=== PATIENT | female | born 1990 | race Caucasian/White ===

== ENCOUNTER 2019-07-08 23:28 | Emergency (ER) | payer MEDICAID ==
[~2019-07-08] VITALS: Ht 160 cm; Wt 97.0 kg
[~2019-07-08 23:28] MED LIST: CEPH500T PO; CLOT15CR73 TP; ONDA4TAB6 PO; ONDA8TAB9 PO
[2019-07-09 01:29] VITALS: BP 136/92
--- NOTE | 2019-07-09 01:29 | NUR ---
PATIENT IS VISUALIZED IN NAD IN THE LOBBY TALKING TO HER DAUGHTER
[2019-07-09 03:17] LABS: BASOPHILS % (AUTO) 0.4 % (0-1); D-DIMER 0.67 MG/L FEU (0-0.50); EOSINOPHILS # (AUTO) 0.4 X10'3 (0-0.9); HEMATOCRIT 39.6 % (35.0-45.0); HEMOGLOBIN 12.9 g/dl (12.0-16.0); MEAN CORPUSCULAR HEMOGLOBIN 29.4 PG (27.0-31.0); MEAN CORPUSCULAR HGB CONC 32.6 g/dL (33.0-36.5); MEAN CORPUSCULAR VOLUME 90.4 FL (78-98); MONOCYTES # (AUTO) 0.9 X10'3 (0-0.9); MONOCYTES % (AUTO) 7.4 % (2-12); NEUTROPHILS # (AUTO) 7.6 X10'3 (1.8-7.7); NEUTROPHILS % (AUTO) 64.2 % (42-75); PLATELET COUNT 301 X10'3 (140-440); RED BLOOD COUNT 4.39 X10'6 (4.20-5.60); RED CELL DISTRIBUTION WIDTH 13.8 % (11.5-14.5); WHITE BLOOD COUNT 11.8 X10'3 (4.5-11.0)
[2019-07-09 03:18] LABS: URINE HCG NEGATIVE (NEG)
[2019-07-09 03:20] LABS: ALANINE AMINOTRANSFERASE 26 U/L (12-78); ALBUMIN 3.8 G/DL (3.4-5.0); ALBUMIN/GLOBULIN RATIO 0.9 (1.1-1.5); ALKALINE PHOSPHATASE 110 IU/L (46-116); ANION GAP 8 (8-16); ASPARTATE AMINO TRANSFERASE 19 U/L (10-37); BILIRUBIN,TOTAL 0.3 MG/DL (0.1-1.0); BLOOD UREA NITROGEN 17 MG/DL (7-18); CALCIUM 8.8 MG/DL (8.5-10.1); CHLORIDE 107 MMOL/L (99-107); CREATININE 0.63 MG/DL (0.40-0.90); GLUCOSE 79 MG/DL (70-104); MAGNESIUM 1.9 MG/DL (1.5-2.4); POTASSIUM 3.3 MMOL/L (3.5-5.1); SODIUM 143 MMOL/L (135-145); TOTAL CARBON DIOXIDE 27.9 MMOL/L (24-32); eGFR > 90 ML/MIN
[2019-07-09] MEDS ORDERED: magnesium oxide 400mg tablet PO ONE (04:00)
[2019-07-09] MEDS ORDERED: potassium Cl 20 mEq SR tablet PO ONE (04:00)
[2019-07-09] MEDS ORDERED: POTA99TA6 PO (04:06)
[2019-07-09] MEDS ORDERED: MAGN300C PO (04:12)
== END 2019-07-09 06:07 | disposition home or self-care (01) ==
LOC: ER 23:29
DX: R25.2 Cramp and spasm (principal); R22.42 Localized swelling, mass and lump, left lower limb; M79.605 Pain in left leg; E83.42 Hypomagnesemia; E87.6 Hypokalemia; Z98.890 Other specified postprocedural states; Z79.899 Other long term (current) drug therapy
CPT/HCPCS: 36415; 80053; 81025; 83735; 85025; 85379; 93971; 99284

== ENCOUNTER 2022-09-24 08:13 | Emergency (ER) | payer MEDICAID ==
[~2022-09-24] VITALS: Ht 162.6 cm; Wt 120.9 kg
[~2022-09-24 08:13] MED LIST changes: +MAGN300C PO; +POTA99TA6 PO
[2022-09-24 08:24] VITALS: BP 167/102
[2022-09-24 08:59] LABS: BASOPHILS # (AUTO) 0.1 X10'3 (0-0.2); BASOPHILS % (AUTO) 0.5 % (0-1); EOSINOPHILS # (AUTO) 0.1 X10'3 (0-0.9); EOSINOPHILS % (AUTO) 0.8 % (0-6); HEMATOCRIT 41.4 % (35.0-45.0); HEMOGLOBIN 13.6 g/dl (12.0-16.0); LYMPHOCYTES # (AUTO) 2.9 X10'3 (1.1-4.8); LYMPHOCYTES % (AUTO) 23.7 % (21-51); MEAN CORPUSCULAR HEMOGLOBIN 29.2 PG (27.0-31.0); MEAN CORPUSCULAR HGB CONC 32.8 g/dL (33.0-36.5); MEAN PLATELET VOLUME 8.3 FL (7.4-10.4); MONOCYTES # (AUTO) 0.9 X10'3 (0-0.9); MONOCYTES % (AUTO) 7.5 % (2-12); NEUTROPHILS # (AUTO) 8.3 X10'3 (1.8-7.7); NEUTROPHILS % (AUTO) 67.5 % (42-75); PLATELET COUNT 370 X10'3 (140-440); RED BLOOD COUNT 4.65 X10'6 (4.20-5.60); WHITE BLOOD COUNT 12.2 X10'3 (4.5-11.0)
[2022-09-24 09:01] LABS: CLARITY,URINE CLOUDY (Clear); COLOR,URINE YELLOW (Yellow); GLUCOSE, URINE NEGATIVE (Neg); KETONES,URINE NEGATIVE (Neg); LEUKOCYTE ESTERASE ,URINE NEGATIVE (Neg); NITRITES, URINE NEGATIVE (Neg); OCCULT BLOOD,URINE NEGATIVE (Neg); PROTEIN,URINE NEGATIVE (Neg)
[2022-09-24 09:03] LABS: UA COLLECTION TYPE CLN CATCH MIDSTREAM
[2022-09-24 09:08] LABS: HCG SERUM QL NEGATIVE
[2022-09-24 09:13] LABS: ALANINE AMINOTRANSFERASE 34 U/L (12-78); ALBUMIN 3.5 G/DL (3.4-5.0); ALBUMIN/GLOBULIN RATIO 0.9 (1.1-1.5); ALKALINE PHOSPHATASE 126 IU/L (46-116); ANION GAP 5 (8-16); ASPARTATE AMINO TRANSFERASE 26 U/L (10-37); BILIRUBIN,TOTAL 0.2 MG/DL (0.1-1.0); BLOOD UREA NITROGEN 16 MG/DL (7-18); BUN/CREATININE RATIO 20.3 (6.6-38.0); CHLORIDE 103 MMOL/L (99-107); CREATININE 0.79 MG/DL (0.40-0.90); GLUCOSE 95 MG/DL (70-104); LIPASE 152 U/L (73-393); POTASSIUM 3.7 MMOL/L (3.5-5.1); SODIUM 140 MMOL/L (135-145); TOTAL PROTEIN 7.6 G/DL (6.4-8.2); eGFR 85 ML/MIN
[2022-09-24 09:18] LABS: AMORPHOUS PHOSPHATES 4+; BACTERIA,URINE 1+ /HPF (Neg); MUCUS STRANDS FEW /LPF (Neg); RBC,URINE 0-2 /HPF (0-2); SQUAMOUS EPITHELIAL CELL,UR MANY /LPF (FEW); WBC,URINE 0-4 /HPF (0-4)
== END 2022-09-24 10:58 | disposition left against medical advice (07) ==
LOC: ER 08:13
DX: R10.9 Unspecified abdominal pain (principal); Z53.21 Procedure and treatment not carried out due to patient leaving prior to being seen by health care provider
CPT/HCPCS: 36415; 80053; 81001; 83690; 84703; 85025

== ENCOUNTER 2022-10-26 17:10 | Emergency (ER) | payer MEDICAID ==
[~2022-10-26] VITALS: Ht 161.3 cm; Wt 118.2 kg
[2022-10-26 17:28] VITALS: BP 150/99
[2022-10-26] MEDS ORDERED: HYDROcodone/acetaminophen 5mg/325mg tablet PO STA (17:29)
[2022-10-26] MEDS ORDERED: IBUP-1986 PO ×3 (20:47→21:10)
[2022-10-26] MEDS ORDERED: ketorolac trometh inj. 60 MG/2 ML VIAL IM ONE (20:50)
== END 2022-10-26 21:20 | disposition home or self-care (01) ==
LOC: ER 17:11
DX: S93.401A Sprain of unspecified ligament of right ankle, initial encounter (principal); Z98.890 Other specified postprocedural states; X50.1XXA Overexertion from prolonged static or awkward postures, initial encounter; Y93.89 Activity, other specified; Y92.89 Other specified places as the place of occurrence of the external cause; Y99.8 Other external cause status
CPT/HCPCS: 73610; 96372; 99284; J1885; L4360; A6449

== ENCOUNTER 2025-04-24 14:41 | Emergency (ER) | payer MEDICAID ==
[~2025-04-24] VITALS: Ht 162.6 cm; Wt 135.5 kg
[~2025-04-24 14:41] MED LIST changes: +IBUP-1986 PO
--- NOTE | 2025-04-24 15:10 | Physician Documentation ---
History of Present Illness ~ Chief Complaint: Post-operative complication Stated Complaint: ABDOMINAL PAIN POST C SECTION Time Seen by MD: 14:57 Primary Medical Doctor: Dr. John COSTA The patient is Seen today with complaints of being five days postop that patient states was significant and did not go as planned. Patient states she had to people on top of her trying to press the baby out. Patient states she has been taking oxycodone 5 mg 1-2 tabs every few hours for pain and states she has just about ran out of them and was instructed by her OB Gyne doctor to come to the ER for pain management as well as for further eval. Patient denies any fevers or chills but states she has significant pain in her left lower leg. She denies any shortness of breath or abdominal pain or nausea, vomiting, diarrhea. She has no other concern or complaint at this time. Tetanus within 5 years?: Yes Medication Reconciliation Allergies: Coded Allergies: No Known Allergies (Unverified , 04/24/25) Scheduled Cephalexin (Cephalexin), 1 TABLET PO QID Clotrimazole/Betamet Diprop Cream* (Lotrisone Cream*), 1 APPLIC TP BID Ibuprofen (Ibuprofen), 1 TAB PO Q8H Ondansetron (Zofran Odt), 1 TAB PO Q8H Potassium (Potassium), 10 MEQ PO DAILY Scheduled PRN Hydrocodone Bit/Acetaminophen (Hydrocodone-Apap 10-325 Tablet), 1 TABLET PO Q8H PRN for moderate or severe pain 4-10 Magnesium Oxide/Mag Aa Chelate (Magnesium 300 mg Capsule), 1 CAPSULE PO DAILY PRN for hypomagnesemia Ondansetron Hcl (Zofran), 1 TAB PO Q6H PRN for nausea Past Medical History Past Medical History: No Pertinent History Past Surgical History: Alcohol Use: None Drug Use: none Lives with: Family Lives In: Home Occupation: employed Review of Systems Constitutional: Denies: chills, fever, weakness Eyes: Denies: pain, blurred vision ENT: Denies: ear pain, nose pain, throat pain, mouth pain Respiratory: Denies: cough, shortness of breath Cardiovascular: Denies: chest pain, palpitations Gastrointestinal: Denies: abdominal pain, nausea, vomiting Genitourinary: Denies: burning, dysuria Female Genitalia: Denies: vaginal discharge, pelvic pain Neurological: Denies: headache, dizziness Musculoskeletal: Denies: pain, swelling Integumentary: Denies: rash, lesions Allergic/Immunologic: Denies: hives, itching Hematologic/Lymphatic: Denies: no symptoms reported Psychiatric: Denies: depression, anxiety Physical Exam Vital Signs: Temperature: 97.7, Source: Temporal, Heart Rate: 99, Respiratory Rate: 20, BP: 160/89, Pulse Oximetry: 98, Weight: 135.500 Oxygen Flow Rate: 0 Physical Exam General: Awake and Alert, no acute distress. HEENT: Conjunctiva pink, Sclera clear, Mucus Membranes moist. Neck: Supple without masses and tenderness. Resp: Unlabored. Lungs clear to auscultation bilaterally. Heart: Regular Rate and rhythm, normal S1 and S2 without murmur, rub or gallop. Abdomen: On exam, the patient does have postsurgical incision from which appears to be healing well without any sign of significant induration or infection or surrounding erythema. Abdomen is mildly tender to palpation in all quadrants but is soft and nondistended and no guarding and no rebound. No masses. Extremities: Patient on exam does have tenderness to palpation of the left lower extremity swelling of mild swelling of the medial proximal tibia. Patient has swelling of the legs worse on the left side with no significant calf tenderness and negative Homans sign. Skin: Warm and Dry. Progress Results/Orders Results/Orders Orders - YENNY TONEY PAC Vl Venous (04/24/25 15:05) Completed Orders - YENNY TONEY PAC Electrocardiogram (04/24/25 15:05) Cbc/Diff (04/24/25 15:05) MG (04/24/25 15:05) Procalcitonin (04/24/25 15:05) BMP (04/24/25 15:05) Hydrocodone/Apap 10/325 ([place] 10/325mg (04/24/25 15:05) Lacticsepsis (04/24/25 15:05) Vl Venous (04/24/25 15:05) Medications Received in ER Medications (Trade) Dose Ordered Sig/Mitzi Route PRN Reason Start Time Stop Time Status Last Admin Dose Admin ([place] 10/325mg tab) 1 tab ONCE STAT PO 04/24/25 15:05 04/24/25 15:14 DC 04/24/25 16:24 1 TAB Vital Signs 04/24/25 04/24/25 04/24/25 04/24/25 14:44 16:24 16:25 16:25 Temp 97.7 97.7 Pulse 99 101 Resp 20 13 16 16 B/P (MAP) 160/89 136/80 (98) Pulse Ox 98 98 O2 Flow Rate 0 0 04/24/25 17:07 Temp 97.7 B/P (MAP) Laboratory Tests Test 04/24/25 15:47 White Blood Count 12.9 H Red Blood Count 4.22 Hemoglobin 12.3 Hematocrit 36.4 Mean Corpuscular Volume 86.2 Mean Corpuscular Hemoglobin 29.1 Mean Corpuscular Hemoglobin Concent 33.7 Red Cell Distribution Width 14.3 Platelet Count 440 Mean Platelet Volume 8.0 Neutrophils (%) (Auto) 78.2 H Lymphocytes (%) (Auto) 13.8 L Monocytes (%) (Auto) 5.8 Eosinophils (%) (Auto) 1.7 Basophils (%) (Auto) 0.5 Neutrophils # (Auto) 10.1 H Lymphocytes # (Auto) 1.8 Monocytes # (Auto) 0.7 Eosinophils # (Auto) 0.2 Basophils # (Auto) 0.1 CBC Comment Sodium Level 138 Potassium Level 3.9 Chloride Level 105 Carbon Dioxide Level 27.7 Anion Gap 5 L Blood Urea Nitrogen 10 Creatinine 0.59 Estimated GFR/1.73 m2 > 90 BUN/Creatinine Ratio 16.9 Glucose Level 96 Lactic Acid Level 0.6 Calcium Level 9.1 Magnesium Level 2.0 Albumin 2.5 L Procalcitonin < 0.05 Chemistry Comments EKG/XRAY/CT/US/VASC/MRI Ultrasound : Impression VASCULAR Patient: BHUPINDER ANAYA Medical Record: [id number] [facility] : 1990, Age: 34 Sex: F Location: ER Patient Status: REG ER Service Date/Time: 04/24/25 1505 Ordering Physician: YENNY TONEY Exam Name: VENOUS Technologist: Thom Steinberg CLINICAL HISTORY: Pain. TECHNIQUE: Color and duplex doppler imagine of the left lower extremity veins was performed. Vessel compression if possible was also performed. COMPARISON: None FINDINGS: Left common femoral vein: Normal compressibility and flow. Left femoral vein: Normal compressibility and flow. Left popliteal vein: Normal compressibility and flow. Proximal calf veins are normally compressible. IMPRESSION: NO SONOGRAPHIC EVIDENCE FOR DEEP VENOUS THROMBOSIS IN THE LEFT LOWER EXTREMITY VEINS. Dictated by:SELENE RITCHIE MD Dictation date and time:04/24/251641 Electronically Signed by: SELENE RITCHIE MD Date and Time: 04/24/251641 Transcribed: [facility] Transcribed: NO PRIMARY CARE PROVIDER~ cc: YENNY TONEY; SELENE RITCHIE MD ~ Medical Decision Making Findings The patient is Seen today with complaints of being five days postop that patient states was significant and did not go as planned. Patient states she had to people on top of her trying to press the baby out. Patient states she has been taking oxycodone 5 mg 1-2 tabs every few hours for pain and states she has just about ran out of them and was instructed by her OB Gyne doctor to come to the ER for pain management as well as for further eval. Patient denies any fevers or chills but states she has significant pain in her left lower leg. She denies any shortness of breath or abdominal pain or nausea, vomiting, diarrhea. She has no other concern or complaint at this time. Patient's lab work was largely unremarkable. Patient did have prescription of [place] 10/325 mg sent to patient pharmacy and patient was given a dose of [place] 10/325 mg in the ED today with significant relief of her pain. Patient did have ultrasound of her left lower extremity that showed no sign of DVT or blood clot. Patient will follow up with OB Gyne as soon as possible for further eval and treatment. Patient will return to ED with any worsening, concerning or changing symptoms. Departure Disposition: HOME / SELF CARE / HOMELESS Impression: Primary Impression: Postoperative complication of section Additional Impression: Uncontrolled pain Condition: Improved Discharge Instructions: Delivery, Care After Additional Instructions: Patient's lab work was largely unremarkable. Patient did have prescription of [place] 10/325 mg sent to patient pharmacy and patient was given a dose of [place] 10/325 mg in the ED today with significant relief of her pain. Patient did have ultrasound of her left lower extremity that showed no sign of DVT or blood clot. Patient will follow up with OB Gyne as soon as possible for further eval and treatment. Patient will return to ED with any worsening, concerning or changing symptoms. Referrals: NO PRIMARY CARE PROVIDER (PCP) Prescriptions Hydrocodone Bit/Acetaminophen (Hydrocodone-Apap 10-325 Tablet) 10mg/325mg Tablet 1 TAB PO TID PRN for pain for 10 Days, #30 TAB Prov: YENNY TONEY 04/24/25 Hydrocodone Bit/Acetaminophen (Hydrocodone-Apap 10-325 Tablet) 10mg/325mg Tablet 1 TABLET PO Q8H PRN for moderate or severe pain 4-10 for 10 Days, #30 TAB Prov: YENNY TONEY 04/24/25 Signature Scribe Signature: No scribe Attestation: No scribe YENNY TONEY Apr 24, 2025 15:10
--- NOTE | 2025-04-24 15:23 | ELECTROCARDIOGRAPH REPORT ---
[facility] Test Date: 2025-04-24 Test Time: 15:21:47 Pat Name: BHUPINDER ANAYA Department: EMERGENCY ROOM Room: Gender: F Product Sales Representative: LAYNE : 1990 Requested By: YENNY TONEY Order Number: [id number] Reading MD: Measurements Intervals [place] Rate: 87 P: 44 WV: 165 QRS: 3 QRSD: 81 T: 20 QT: 332 QTc: 400 Interpretive Statements Sinus rhythm Please click the below link to view image of tracing.
[2025-04-24 16:06] LABS: MEAN PLATELET VOLUME 8.0 FL (7.4-10.4); RED CELL DISTRIBUTION WIDTH 14.3 % (11.5-14.5)
[2025-04-24 16:17] LABS: CREATININE 0.59 MG/DL (0.40-0.90); TOTAL CARBON DIOXIDE 27.7 MMOL/L (24-32); eCRCL 117 ML/MIN; eGFR > 90 ML/MIN
[2025-04-24] MEDS: HYDROcodone/acetaminophen 10/325mg tab PO STA (16:24)
[2025-04-24 16:25] VITALS: BP 136/80; PULSE 101; RESP 16; O2SAT 98
--- NOTE | 2025-04-24 16:45 | VASCULAR REPORT ---
CLINICAL HISTORY: Pain. TECHNIQUE: Color and duplex doppler imagine of the left lower extremity veins was performed. Vessel c ompression if possible was also performed. COMPARISON: None FINDINGS: Left common femoral vein: Normal compressibility and flow. Left femoral vein: Normal compressibility and flow. Left popliteal vein: Normal compressibility and flow. Proximal calf veins are normally compressible. IMPRESSION: NO SONOGRAPHIC EVIDENCE FOR DEEP VENOUS THROMBOSIS IN THE LEFT LOWER EXTREMITY VEINS.
[2025-04-24] MEDS ORDERED: HYDR-3973 PO ×2 (16:56→21:18)
[2025-04-24 17:07] VITALS: TEMP 97.7
== END 2025-04-24 17:09 | disposition home or self-care (01) ==
LOC: ER 14:42
DX: O75.4 Other complications of obstetric surgery and procedures (principal); M79.662 Pain in left lower leg
CPT/HCPCS: 36415; 80048; 83605; 83735; 84145; 85025; 93005; 93971; 99284

== ENCOUNTER 2025-05-11 16:45 | Emergency (ER) | payer MEDICAID ==
[~2025-05-11] VITALS: Ht 162.6 cm; Wt 128.6 kg
--- NOTE | 2025-05-11 19:21 | Physician Documentation ---
History of Present Illness ~ Chief Complaint: Post-operative complication Stated Complaint: POST OP COMPLICATIONS Time Seen by MD: 19:14 Primary Medical Doctor: Charito Barnes; OB: Florencia COSTA Patient presents to the emergency room with left lower quadrant abdominal pain of sudden onset after falling today. She is simply tripped and fell landing on that side. She is ambulatory. She has had nothing for the pain no head strike. Patient did just give 22 days ago via . Medication Reconciliation Allergies: Coded Allergies: No Known Allergies (Unverified , 04/24/25) Scheduled Cephalexin (Cephalexin), 1 TABLET PO QID Clotrimazole/Betamet Diprop Cream* (Lotrisone Cream*), 1 APPLIC TP BID Ibuprofen (Ibuprofen), 1 TAB PO Q8H Ondansetron (Zofran Odt), 1 TAB PO Q8H Potassium (Potassium), 10 MEQ PO DAILY Scheduled PRN Magnesium Oxide/Mag Aa Chelate (Magnesium 300 mg Capsule), 1 CAPSULE PO DAILY PRN for hypomagnesemia Ondansetron Hcl (Zofran), 1 TAB PO Q6H PRN for nausea Discontinued Medications Hydrocodone Bit/Acetaminophen (Hydrocodone-Apap 10-325 Tablet), 1 TABLET PO Q8H PRN for moderate or severe pain 4-10 Discontinued Reason: Auto Discontinued Hydrocodone Bit/Acetaminophen (Hydrocodone-Apap 10-325 Tablet), 1 TAB PO TID PRN for pain Discontinued Reason: Auto Discontinued Past Medical History Past Medical History: No Pertinent History Past Surgical History: Alcohol Use: None Drug Use: none Lives with: Family Lives In: Home Occupation: employed Review of Systems ROS All review of systems negative except as per HPI Physical Exam Vital Signs: Temperature: 98.0, Source: Temporal, Heart Rate: 83, Respiratory Rate: 16, BP: 169/91, Pulse Oximetry: 99, Weight: 128.600 Oxygen Flow Rate: 0 Physical Exam General: Patient is awake, alert, oriented x4 in no acute distress and appears comfortable Head: Normocephalic and atraumatic. Eyes: Conjunctival normal. EOMI. PERRL. ENT: Mucous membranes moist. Neck: Supple, trachea is midline. Chest: Clear to auscultation bilaterally without rales, rhonchi, or wheezes. There is no accessory muscle use or retractions. Cardiac: RRR without murmurs, gallops, or rubs. Abd: Soft, nondistended, mild tenderness to palpation to left lower quadrant with no adnexal tenderness Progress Results/Orders Results/Orders Orders - PRAMOD KAUR MD Ct Abdomen Pelvis (05/11/25 19:48) Completed Orders - PRAMOD KAUR MD Ct Abdomen Pelvis (05/11/25 19:48) Iohexol 300mg/Ml 100ml Inj. (Omnipaque-3 (05/11/25 19:58) Ketorolac Trometh 15mg/Ml Vial (Toradol (05/11/25 20:30) Acetaminophen 1,000mg/100ml Iv (Ofirmev (05/11/25 20:30) Medications Received in ER Medications (Trade) Dose Ordered Sig/Mitzi Route PRN Reason Start Time Stop Time Status Last Admin Dose Admin (Toradol injection) 15 mg ONCE ONCE IV 05/11/25 20:30 05/11/25 20:36 DC 05/11/25 20:42 15 MG Acetaminophen 100 ml @ 400 mls/hr ONCE ONCE IV 05/11/25 20:30 05/11/25 20:44 DC 05/11/25 20:43 400 MLS/HR Vital Signs 05/11/25 05/11/25 05/11/25 05/11/25 16:52 19:27 20:00 20:42 Temp 98.0 Pulse 83 80 Resp 16 16 18 16 B/P (MAP) 169/91 144/87 (106) Pulse Ox 99 99 O2 Flow Rate 0 0 Medical Decision Making Findings Patient presented to the emergency room with left-sided abdominal pain status post fall as per HPI. Differentials include but are not limited to fractures dislocations soft tissue injury internal bleeds. Given patient's recent history of abdominal surgery CT scan was performed which was reassuring. Patient appears comfortable. ER precautions discussed. I do not feel emergent labs are necessary. I do not feel patient was suffering from acute ovarian pathology. Departure Disposition: HOME / SELF CARE / HOMELESS Impression: Primary Impression: Abdominal pain Condition: Stable Discharge Instructions: Abdominal Pain, Adult Referrals: NO PRIMARY CARE PROVIDER (PCP) Prescriptions Hydrocodone Bit/Acetaminophen 5/325 MG ([place] 5/325 MG) 5 Mg/325 Mg Tablet 1-2 TAB PO Q4-6 hours PRN for pain, #7 TAB Prov: PRAMOD KAUR MD 05/11/25 Education Educated: Patient Educated regarding: diagnosis, treatment, need for follow up Signature Scribe Signature: No scribe Attestation: The note accurately reflects work and decisions made by me.Pramod Kaur MD 05/11/25 21:14 PRAMOD KAUR MD May 11, 2025 19:21
[2025-05-11] MEDS ORDERED: iohexol 300mg/ml 100ml inj. ONE (19:58)
[2025-05-11] MEDS: ketorolac trometh 15mg/ml vial 15 MG/ML ML IV ONE (20:42)
[2025-05-11] MEDS: acetaminophen 1,000mg/100ml IV 100 ML IV ONE (20:43)
--- NOTE | 2025-05-11 20:46 | RADIOLOGY REPORT ---
COMPUTERIZED TOMOGRAPHY ABDOMEN AND PELVIS WITH CONTRAST REASON FOR EXAM: Left lower quadrant pain s/p fall. section 22 days ago. COMPARISON: None TECHNIQUE: The exam was performed on a Multidetector scanner. Spiral scans were acquired from the fannie phragm to the symphysis pubis after administration of IV contrast. 2-D coronal and sagittal reformatt ed images were provided. Radiation optimization: All CT scans at this facility use at least one of th radha dose optimization techniques: Automated exposure control mA and/or kV adjustment per patient size (includes targeted exams where dose is matched to clinical indication) or iterative reconstruction. CONTRAST ADMINISTRATION: 100 mL omnipaque 300 intravenously RADIATION DOSE: CTDI: 37 mGy DLP: 2138 mGy-cm FINDINGS: The visualized lung bases are clear. There is no pleural effusion. There is no pericardial effusion. The spleen is not enlarged. The liver is enlarged at approximately 19.7 cm in length. No focal hepati c lesion is identified. The portal vein is patent. A tiny calcified gallstone is seen in the gallbla dder. The gallbladder is not distended. There is no pericholecystic edema. The pancreas is within n ormal limits. The adrenal glands are normal. The kidneys enhance symmetrically. No solid renal mass is identified. There is no hydronephrosis of either kidney. There is no abdominal aortic aneurysm. T here is no pathologic lymphadenopathy by size criteria. There is no free fluid in the abdomen or pelv is. The uterus is mildly enlarged, consistent with the history of recent section. The urinar y bladder is unremarkable. The colonic stool burden is small. The appendix is normal. There is no dis tention of the small bowel to suggest obstruction. There is no intra-abdominal abscess or other fluid collection. No acute osseous abnormality is identified. IMPRESSION: No acute finding in the abdomen or pelvis to explain the patient's pain. Normal appendix. Cholelithiasis without evidence of acute cholecystitis.
[2025-05-11] MEDS ORDERED: HYDR-3965 PO (21:14)
[2025-05-11] MEDS: morphine 4 MG/ML inj SYRINge IV ONE (21:22)
[2025-05-11] MEDS: ondansetron/PF 4mg/2ml inj IV ONE (21:22)
[2025-05-11 22:03] VITALS: BP 136/80; PULSE 76; RESP 18; TEMP 98.1; O2SAT 99
== END 2025-05-11 22:05 | disposition home or self-care (01) ==
LOC: ER 16:46
DX: R10.32 Left lower quadrant pain (principal); Z79.899 Other long term (current) drug therapy; W01.0XXA Fall on same level from slipping, tripping and stumbling without subsequent striking against object, initial encounter; Y93.89 Activity, other specified; Y92.89 Other specified places as the place of occurrence of the external cause; Y99.8 Other external cause status
CPT/HCPCS: 74177; 96365; 96375; 99285; J0131; J1885; J2270; J2405; Q9967